=== PATIENT | female | born 1970 | race African-American/Black ===

== ENCOUNTER 2022-03-09 04:46 | Emergency (ER) | payer MEDICAID ==
[~2022-03-09] VITALS: Ht 162.6 cm; Wt 75.0 kg
[2022-03-09 07:36] LABS: BASOPHILS % (AUTO) 0.5 % (0.0-2.0); EOSINOPHILS % (AUTO) 0.4 % (1.0-6.0); HEMATOCRIT 31.6 % (36-46); HEMOGLOBIN 10.8 g/dL (12.0-16.0); LYMPHOCYTES # (AUTO) 1.3 K/uL (1.0-4.8); LYMPHOCYTES % (AUTO) 21.9 % (22.0-44.0); MEAN CORPUSCULAR HEMOGLOBIN 30.7 pg (26.0-34.0); MEAN CORPUSCULAR VOLUME 90 fL (80-100); MONOCYTES # (AUTO) 0.6 K/uL (0.1-1.0); MONOCYTES % (AUTO) 10.8 % (2.0-9.0); NEUTROPHILS # (AUTO) 3.8 K/uL (1.8-7.7); NEUTROPHILS % (AUTO) 66.4 % (40.0-70.0); PLATELET COUNT (AUTO) 181 K/uL (150-450)
[2022-03-09 07:39] LABS: ANION GAP 8 mmol/L (8-16); CALCIUM, TOTAL 9.3 mg/dL (8.8-10.5); CARBON DIOXIDE 30 mmol/L (22-29); CHLORIDE 100 mmol/L (98-107); CREATININE 0.72 mg/dL (0.60-1.30); GLUCOSE,RANDOM 87 mg/dL (70-110); POTASSIUM 3.1 mmol/L (3.5-5.1); SODIUM SERUM 138 mmol/L (136-145); UREA NITROGEN, BLOOD 13 mg/dL (7-18)
[2022-03-09 07:42] LABS: GLOMERULAR FILTR. RATE CALC > 60 mL/min (>60)
[2022-03-09 07:45] LABS: ALANINE AMINOTRANSFERASE 80 U/L (12-78); ALBUMIN 3.4 g/dL (3.4-5.0); ALKALINE PHOSPHATASE 58 U/L (46-116); ASPARTATE AMINOTRANSFERASE 149 U/L (15-37); BILIRUBIN,TOTAL 0.8 mg/dL (0.1-1.0); TOTAL PROTEIN, SERUM 7.2 g/dL (6.4-8.2)
[2022-03-09] MEDS ORDERED: SODIUM CHLORIDE 0.9% 1,000 ML IV ONE (08:30)
[2022-03-09] MEDS ORDERED: MORPHINE SULFATE 4 MG/ML SYRINGE IVP ONE (08:30)
[2022-03-09] MEDS ORDERED: ONDANSETRON HCL 4 MG/2 ML VIAL IVP ONE (08:30)
[2022-03-09] MEDS ORDERED: POTASSIUM CHLORIDE 10% 40 MEQ/30 ML LIQUID UDCUP PO ONE (10:15)
[2022-03-09 10:36] LABS: COVID AG,FIA SOURCE NASOPHARYNGEAL
[2022-03-09] MEDS ORDERED: IOHEXOL 350 MG/ML 100 ML VIAL ONE (14:36)
[2022-03-09] MEDS ORDERED: SODIUM CHLORIDE 0.9% 100 ML ONE (14:36)
[2022-03-09 20:57] VITALS: BP 110/62
== END 2022-03-09 19:52 | disposition short-term general hospital (02) ==
LOC: EMS 04:49
DX: S32.029A Unspecified fracture of second lumbar vertebra, initial encounter for closed fracture (principal); S92.001A Unspecified fracture of right calcaneus, initial encounter for closed fracture; R33.9 Retention of urine, unspecified; E87.6 Hypokalemia; Z20.822 Contact with and (suspected) exposure to COVID-19; W17.89XA Other fall from one level to another, initial encounter; Y93.89 Activity, other specified; Y92.89 Other specified places as the place of occurrence of the external cause; Y99.8 Other external cause status
CPT/HCPCS: 99291; 72131; 72148; 96374; 29515; 71045; 96361; 96375; 87426; 80053; 84703; 85025; 36415; 72040; 72070; 72100; 72170; 73610; 73630; 74177; 51702; J2270; J2405; Q9967; J7030; J7050; 96360; 99285